=== PATIENT | female | born 1940 | race Hispanic/Latino ===

== ENCOUNTER 2017-01-07 10:58 | Observation (INO) | payer MEDICARE, BC ==
[2017-01-07 11:06] VITALS: BMI 21.4
--- NOTE | 2017-01-07 11:42 | ED PDOC ---
Arrival/HPI - General Historian: Patient <Ken Sagastume - Last Filed: 01/07/17 13:17> <Donna Cabrera - Last Filed: 01/07/17 13:28> - General Chief Complaint: Abnormal Labs Time Seen by Provider: 01/07/17 11:05 - Critical Care Narrative Critical Care (Text): 01/07/17 11:37 This is a 76 year old female with PMHx Diabetes, Anemia, hyperlipidemia, thyroid tumor s/p resection leading to hypothyroidism who presented from her Heme/Onc Dr. Nelson's office for hemoglobin of 6.5. Dr. Nelson is requesting 2 units of pRBCs transfused. Patient has been experiencing fatigue, dizziness, and blurred vision in the left eye for the past 2 days. Patient normally receives Procrit injections at Dr. Nelson's office but has missed her last scheduled dose. Patient denies other acute complaints at this time. Per Dr. Nelson, her hemoglobin runs around 10 at baseline. PMHx: DM, Anemia, Thyroid tumor s/p resection leading to hypothyroidism, hyperlipidemia PSHx: Thyroid resection Allergies: NKDA Social: Former smoker in her teens. Denies alcohol, drug use. PMD: Dr. Sung Heme/Onc: Dr. Nelson 01/07/17 12:13 (Ken Sagastume) Past Medical History - Provider Review Nursing Documentation Reviewed: Yes - Infectious Disease Hx of Infectious Diseases: None - Tetanus Immunization Tetanus Immunization: Unknown - Reproductive Menopause: Yes - Cardiac Hx Hypertension: Yes - HEENT Hx Cataracts: Yes - Endocrine/Metabolic Hx Diabetes Mellitus Type 2: Yes - Hematological/Oncological Hx Anemia: Yes Hx Blood Transfusions: No Hx Unexplained Bleeding: Yes (internal bleeding) Other/Comment: vit d infusion 04/1214, procrit injection - Integumentary Hx Dermatological Disorder: No - Psychiatric Hx Psychophysiologic Disorder: No Hx Depression: No Hx Emotional Abuse: No Hx Physical Abuse: No Hx Substance Use: No - Surgical History Hx Thyroidectomy: Yes - Anesthesia Hx Anesthesia: Yes Hx Anesthesia Reactions: No - Suicidal Assessment Feels Threatened In Home Enviroment: No <JayashreeelsaKen Kris - Last Filed: 01/07/17 13:17> Family/Social History - Physician Review Nursing Documentation Reviewed: Yes Family/Social History: No Known Family HX Smoking Status: Former Smoker Hx Alcohol Use: No Hx Substance Use: No Hx Substance Use Treatment: No <Ken Sagastume - Last Filed: 01/07/17 13:17> Allergies/Home Meds <Ken Sagastume - Last Filed: 01/07/17 13:17> <Donna Cabrera - Last Filed: 01/07/17 13:28> Allergies/Adverse Reactions: Allergies No Known Allergies Allergy (Verified 01/07/17 13:17) Home Medications: Home Meds Medication Instructions Recorded Confirmed Glipizide [Glucotrol] 10 mg PO BID 06/11/12 01/07/17 Glucophage 1000mg Bid 1,000 mg PO BID 06/11/12 01/07/17 Atorvastatin [Lipitor] 40 mg PO DAILY 04/23/14 01/07/17 Furosemide [Lasix] 40 mg PO BID 04/23/14 01/07/17 Levothyroxine [Synthroid] 75 mg PO DAILY 01/07/17 01/07/17 Valsartan [Diovan] 40 mg PO DAILY 01/07/17 01/07/17 Review of Systems - Review of Systems Constitutional: Normal Eyes: Vision Changes (blurred vision in left eye) ENT: Normal Respiratory: Normal Cardiovascular: Normal Gastrointestinal: Normal Genitourinary Female: Normal Musculoskeletal: Normal Skin: Normal Neurological: Dizziness Endocrine: Normal Hemo/Lymphatic: Normal Psychiatric: Normal <Ken Sagastume - Last Filed: 01/07/17 13:17> Physical Exam Vital Signs Reviewed: Yes Temperature: Afebrile Blood Pressure: Hypertensive Pulse: Regular Respiratory Rate: Normal Appearance: Positive for: Well-Appearing, Non-Toxic, Comfortable Pain Distress: None Mental Status: Positive for: Alert and Oriented X 3 - Systems Exam Head: Present: Atraumatic, Normocephalic Pupils: Present: PERRL Extroacular Muscles: Present: EOMI Conjunctiva: Present: Normal Mouth: Present: Moist Mucous Membranes Neck: Present: Normal Range of Motion Respiratory/Chest: Present: Clear to Auscultation, Good Air Exchange. No: Accessory Muscle Use Cardiovascular: Present: Regular Rate and Rhythm, Normal S1, S2. No: Murmurs Abdomen: Present: Normal Bowel Sounds. No: Tenderness, Distention Upper Extremity: Present: Normal Inspection, NORMAL PULSES. No: Edema Lower Extremity: Present: Normal Inspection, NORMAL PULSES. No: Edema, CALF TENDERNESS Neurological: Present: GCS=15, CN II-XII Intact Skin: Present: Warm, Dry, Normal Color Psychiatric: Present: Alert, Oriented x 3 <Ken Sagastume - Last Filed: 01/07/17 13:17> Medical Decision Making <Ken Sagastume - Last Filed: 01/07/17 13:17> - EKG Interpretation Type: 12 lead EKG Comparison: No previous EKG avail. <Donna Cabrera - Last Filed: 01/07/17 13:28> ED Course and Treatment: 01/07/17 11:45 CBC, CMP, Amylase, Lipase, Type and Cross 2 units PRBCs, EKG, Cardiac Iso, CXR PA/LAT, Head CT w.o. contrast 01/07/17 12:34 (Ken Sagastume) A 76 year old female sent in for a blood transfusion. Patient has hemoglobin of 6.5. In agreement with resident note, which includes further HPI details. Patient was seen and evaluated with resident, came up with plan and treatment together. 01/07/17 12:56 Labs showing Hgb of 6.8; case had been discussed with Dr. Nelson, who said the patient's Hgb is usually around 10 - patient consented for transfusion of 2 units PRBC - will be placed on observation. Her PMD is Dr. Sung; will be placed on Dr. Smith's service, but Dr. Gordon is covering so will place on his service, as discussed with him. (Donna Cabrera) - Lab Interpretations Lab Results: 01/07/17 12:00 01/07/17 12:00 Lab Results 01/07/17 12:00: PT 10.7, INR 0.99, APTT 23.6 L 01/07/17 12:00: Blood Type Pending, Antibody Screen Pending, Crossmatch See Detail, BBK History Checked No verified bt 01/07/17 12:00: Sodium 139, Potassium 4.6, Chloride 104, Carbon Dioxide 23, Anion Gap 17, BUN 22 H, Creatinine 1.3, Est GFR ( Amer) 48, Est GFR (Non- Af Amer) 40, Random Glucose 175 H, Calcium 9.3, Total Bilirubin 0.2, AST 31, ALT 40, Alkaline Phosphatase 87, Lactate Dehydrogenase 419, Total Creatine Kinase 64, Troponin I 0.04, Total Protein 6.8, Albumin 3.9, Globulin 2.9, Albumin/Globulin Ratio 1.3, Amylase 108, Lipase 207 01/07/17 12:00: WBC 8.0, RBC 2.42 L, Hgb 6.8 L*, Hct 22.0 L, MCV 90.9, MCH 28.1 , MCHC 30.9 L, RDW 14.9 H, Plt Count 426, MPV 11.3 H, Gran % 75.5 H, Lymph % ( Auto) 14.8 L, Hughes % (Auto) 4.5, Eos % (Auto) 4.8, Baso % (Auto) 0.4, Gran # 6.05, Lymph # 1.2, Hughes # 0.4, Eos # 0.4, Baso # 0.03 - EKG Interpretation EKG Interpretation (Text): 01/07/17 13:25 NSR @ 82 with RBBB, Left axis deviation (with left anterior fascicular block), QRS is 110; QTc is 464; no ST/T changes; no old for comparison. (Donna Cabrera) - PA / [employer]PER[employer] / Resident Statement JADA has reviewed & agrees with the documentation as recorded. JADA has examined the patient and agrees with the treatment plan. <Donna Cabrera - Last Filed: 01/07/17 13:28> Disposition/Present on Arrival - Present on Arrival Any Indicators Present on Arrival: No History of DVT/PE: No History of Uncontrolled Diabetes: No Urinary Catheter: No History of Decub. Ulcer: No History Surgical Site Infection Following: None - Disposition Have Diagnosis and Disposition been Completed?: Yes Disposition Time: 13:00 Patient Plan: Observation <Ken Sagastume - Last Filed: 01/07/17 13:17> <Donna Cabrera - Last Filed: 01/07/17 13:28> - Disposition Diagnosis: Symptomatic anemia Disposition: HOSPITALIZED Patient Problems: Current Active Problems Problem Status Onset Anemia Acute Condition: STABLE
[2017-01-07 12:35] LABS: BASO # 0.03 K/mm3 (0.0-2.0); BASO % 0.4 % (0.0-3.0); EOS # 0.4 (0.0-0.7); EOS % 4.8 % (1.5-5.0); GRAN # 6.05 (1.4-6.5); GRAN % 75.5 % (50.0-68.0); LYMPH # 1.2 (1.2-3.4); LYMPH % 14.8 % (22.0-35.0); MEAN CELL VOLUME 90.9 fl (80.0-105.0); MEAN CORPUSCULAR HEMOGLOBIN 28.1 pg (25.0-35.0); MEAN CORPUSCULAR HGB CONC 30.9 g/dl (31.0-37.0); MEAN PLATELET VOLUME 11.3 fl (7.0-11.0); MONO # 0.4 (0.1-0.6); MONO % 4.5 % (1.0-6.0); RED CELL DISTRIBUTION WIDTH 14.9 % (11.5-14.5)
[2017-01-07 12:38] LABS: ALB/GLOB RATIO 1.3 (1.1-1.8); BILIRUBIN,TOTAL 0.2 mg/dL (0.2-1.3); CALCIUM 9.3 mg/dL (8.4-10.5); POTASSIUM 4.6 mmol/L (3.6-5.0); TOTAL PROTEIN 6.8 g/dL (5.8-8.3)
[2017-01-07 12:47] LABS: INR 0.99 (0.93-1.08); PARTIAL THROMBOPLASTIN TIME 23.6 Seconds (23.7-30.8)
[2017-01-07 12:49] LABS: TROPONIN I 0.04 ng/mL
[2017-01-07] MEDS ORDERED: Pneumococcal 23-Valent Vaccine IM ONE (15:12)
[2017-01-07] MEDS: Insulin Reg-LOW-Coverage SC SCH ×2 (17:29→21:43)
--- NOTE | 2017-01-07 17:52 | CARD ---
APPROVED REPORT EKG Measurement Heart [id number] <Conclusion> Normal sinus rhythm with sinus arrhythmia Pulmonary disease pattern Right bundle branch block Left anterior fascicular block Bifascicular block Abnormal ECG
[2017-01-07] MEDS ORDERED: METFORMIN 1000 MG PO SCH (18:00)
[2017-01-08 00:41] VITALS: TEMP 97.7
[2017-01-08 06:53] LABS: HEMATOCRIT 28.3 % (36.0-48.0); MEAN CORPUSCULAR HEMOGLOBIN 28.3 pg (25.0-35.0); MEAN CORPUSCULAR HGB CONC 31.8 g/dl (31.0-37.0); MEAN PLATELET VOLUME 11.6 fl (7.0-11.0); RED CELL DISTRIBUTION WIDTH 15.4 % (11.5-14.5); WHITE BLOOD COUNT 8.5 10^3/ul (4.5-11.0)
[2017-01-08 07:40] LABS: ALB/GLOB RATIO 1.4 (1.1-1.8); BILIRUBIN,TOTAL 0.4 mg/dL (0.2-1.3); CALCIUM 9.1 mg/dL (8.4-10.5); POTASSIUM 4.2 mmol/L (3.6-5.0); TOTAL PROTEIN 6.2 g/dL (5.8-8.3)
[2017-01-08 09:01] VITALS: BP 172/67; PULSE 71; RESP 20; O2SAT 99
[2017-01-08] MEDS: Insulin Reg-LOW-Coverage SC SCH (10:00)
[2017-01-08] MEDS ORDERED: Levothyroxine 75 MCG TAB PO SCH (10:00)
--- NOTE | 2017-01-14 02:17 | HP ---
DATE OF ADMISSION: 01/07/2017 HISTORY OF PRESENT ILLNESS: Ms. Hayes is 76 years old female with history of anemia, thyroid tumor resection, hypothyroidism. She received Procrit at [facility] laboratory director[facility] office. She was referred to here for severe anemia. Hemoglobin was 6.8 in the ER. She is complaining of fatigue, shortness of breath on exertion. No nausea, no vomiting, no bleeding from any site. PAST MEDICAL HISTORY: Chronic anemia, chronic kidney disease, diabetes mellitus type 2, history of blood transfusion, unexplained uterine bleeding. PAST SURGICAL HISTORY: Thyroidectomy for thyroid cancer. PERSONAL HISTORY: Former smoker. No history of alcohol abuse. ALLERGIES: NO KNOWN DRUG ALLERGIES. SOCIAL HISTORY: Lives at home with . HOME MEDICATIONS: Glipizide 10 mg p.o. b.i.d, Glucophage 1000 mg p.o. b.i.d., Lipitor 40 mg daily, Lasix 40 mg p.o. b.i.d., Synthroid 75 mcg p.o. daily and Diovan 40 mg daily. REVIEW OF SYSTEMS: As per HPI. Rest of the 12-point review of systems reviewed and negative. PHYSICAL EXAMINATION: GENERAL: Comfortable in bed, in no acute distress. Alert and oriented x3. VITAL SIGNS: Heart rate 100 per minute, blood pressure 130/70, respiratory rate 18 per minute. SKIN: Pallor positive. HEENT: Normal. NECK: No lymphadenopathy. LUNGS: Air entry present and equal bilateral. No added sound. CARDIOVASCULAR: S1 and S2 normal. No murmur. No gallop. Tachycardia plus. ABDOMEN: Soft and nontender. No hepatosplenomegaly. EXTREMITIES: No edema. SPINE: Nontender. PSYCHIATRIC: Affect normal. LABORATORY DATA: White count 8,000, hemoglobin 6.8, hematocrit 22 and platelet count 426. Sodium 139, potassium 4.6, BUN 22, creatinine 1.3 and glucose 175. ASSESSMENT: 1. Severe symptomatic anemia. 2. Chronic kidney disease. 3. Dizziness. 4. Thyroid cancer. PLAN: She will be admitted to tele-monitoring, 2 units of PRBCs to be transfused. Lasix 20 mg IV after first unit. Continue antihypertensive, Diovan 40 mg daily. Continue Synthroid 75 mcg daily, Lipitor 40 mg daily, metformin 1000 mg daily, glipizide 10 mg p.o. b.i.d. We will reassess for discharge in the morning. Sheryl Michelle MD
--- NOTE | 2017-01-14 02:25 | DS ---
DISCHARGE DIAGNOSES: 1. Severe anemia. 2. Chronic kidney disease. 3. Iron deficiency. 4. Fatigue. 5. Thyroid cancer. 6. Hypertension. HOSPITAL COURSE: The patient was admitted with symptomatic anemia. Hemoglobin was 6.8 gm/dL. She was given 2 units of blood transfusion, tolerated the transfusion very well. She was continued on IV diuretics. She was continued on cardiac medications. Condition remained stable. She is being discharged in stable condition. PHYSICAL EXAMINATION ON DISCHARGE: GENERAL: Comfortable in bed, no acute distress. VITAL SIGNS: Heart rate is 80 per minute, blood pressure 110/70, respiratory rate 16 per minute, pulse ox is 98% room air. SKIN: Pallor positive. HEENT: Normal. CHEST: Air entry present and equal bilateral. No added sound. CARDIOVASCULAR: S1 and S2 normal. No murmur, no gallop. ABDOMEN: Soft and nontender. No hepatosplenomegaly. EXTREMITIES: No edema. MARKETING PROFESSIONAL: Alert, oriented x3. No focal sensory or motor deficits. CONDITION ON DISCHARGE: Stable. DISCHARGE DISPOSITION: Home. DISCHARGE INSTRUCTIONS: 1. Continue home medications. 2. Continue glipizide 10 mg p.o. b.i.d. 3. Metformin 1000 mg p.o. b.i.d. 4. Lipitor 40 mg daily. 5. Lasix 40 mg p.o. b.i.d. 6. Levothyroxine 75 mcg p.o. daily. 7. Diovan 40 mg daily. 8. Follow up with Dr. Sung in one week. 9. All prescriptions given to the patient. Discussed with the staff nurse. Discussed with the patient. Time spent in preparing discharge and coordinating care 55 minutes. Sheryl Michelle MD
== END 2017-01-08 11:08 | disposition home or self-care (01) ==
LOC: ED 10:58 → ERH 12:54 → 3RSO 14:18
PROVIDERS: ADMIT Internal Medicine Nephrology; ATTEND Internal Medicine Nephrology
DX: D64.9 Anemia, unspecified (principal); E78.5 Hyperlipidemia, unspecified; E11.9 Type 2 diabetes mellitus without complications; E89.0 Postprocedural hypothyroidism; I10 Essential (primary) hypertension; Z87.891 Personal history of nicotine dependence
CPT/HCPCS: 36415; 36430; 80053; 82150; 82550; 82948; 83615; 83690; 84484; 85025; 85027; 85610; 85730; 86850; 86900; 86920; 93005; 99284; G0378; P9016